=== PATIENT | male | born 1970 | race Asian ===

== ENCOUNTER 2019-04-18 06:49 | Emergency (ER) | payer OTHER ==
[~2019-04-18] VITALS: Ht 172.7 cm; Wt 79.4 kg
[2019-04-18 07:11] VITALS: BP_SYST 128
[2019-04-18 07:36] VITALS: BP_SYST 125
[2019-04-18] MEDS ORDERED: DEXAMETHASONE SOD PHOSPHATE 10 MG/ML VIAL IM ONE (07:45)
== END 2019-04-18 08:10 | disposition home or self-care (01) ==
LOC: SED 06:49
DX: T78.40XA Allergy, unspecified, initial encounter (principal); H57.89 Other specified disorders of eye and adnexa; X58.XXXA Exposure to other specified factors, initial encounter
CPT/HCPCS: 96372; 99283; J1100

== ENCOUNTER 2019-05-02 12:33 | Emergency (ER) | payer OTHER ==
[~2019-05-02] VITALS: Ht 172.7 cm; Wt 79.4 kg
[2019-05-02 13:08] VITALS: BP_SYST 110
[2019-05-02 16:35] VITALS: BP_SYST 110
== END 2019-05-02 16:35 | disposition home or self-care (01) ==
LOC: SED 12:33
DX: L50.9 Urticaria, unspecified (principal)
CPT/HCPCS: 99283

== ENCOUNTER 2019-06-08 13:40 | Emergency (ER) | payer MEDICAID, OTHER ==
[~2019-06-08] VITALS: Ht 172.7 cm; Wt 81.6 kg
[2019-06-08 14:00] VITALS: BP_SYST 127
--- NOTE | 2019-06-08 14:00 | NUR ---
Patient to ER bed 6 to gown for evaluation. Side rails up. Report given to Mikie CHRISTIANSEN.
--- NOTE | 2019-06-08 14:06 | NUR ---
Patient is awake, alert, and oriented x4. He is complaining of bloody stool with anal pain for 2 weeks. 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 He reports having a hard bowel movement today with bright red blood. Patient also states that he visited his PCP and has a colonoscopy scheduled in 2 weeks, but wants relief from his hemmorhoid pain.
--- NOTE | 2019-06-08 14:25 | NUR ---
ER Dr. Ball at bedside examining patient.
--- NOTE | 2019-06-08 14:30 | NUR ---
Rectal exam performed by Dr.Morrison brandon Merchant at bedside during procedure. Patient tolerated well.
--- NOTE | 2019-06-08 14:35 | NUR ---
Patient given written and verbal discharge instructions and verbalizes understanding. ER MD discussed with patient the results and treatment provided. Patient in stable condition. ID arm band removed. Rx of anusol, norco given. Patient educated on pain management and to follow up with PMD. Pain Scale 0/10. Opportunity for questions provided and answered. Medication side effect fact sheet provided.
== END 2019-06-08 14:35 | disposition home or self-care (01) ==
LOC: SED 13:40
DX: K64.9 Unspecified hemorrhoids (principal); K62.5 Hemorrhage of anus and rectum
CPT/HCPCS: 99283

== ENCOUNTER 2019-10-14 09:04 | Emergency (ER) | payer MEDICAID ==
[~2019-10-14] VITALS: Ht 172.7 cm; Wt 79.4 kg
[2019-10-14 09:10] VITALS: BP_SYST 140
--- NOTE | 2019-10-14 09:15 | NUR ---
Patient to ER bed 8 to gown for evaluation. Side rails up. Report given to Armando CHRISTIANSEN.
--- NOTE | 2019-10-14 09:23 | NUR ---
PATIENT PRESENTS TO THE ER WITH HX OF RED RAISED RASH TO ANTERIOR LOWER NECK REGION FOR FOUR DAYS AFTER USING THE GYM AND PROFUSE SWEATING DURING WORKOUT; NO TRAUMA, NO OTHER REMARKABLE S/S; PATENT TO ER #[id number]; ERMD EVALUATION PENDING
--- NOTE | 2019-10-14 09:34 | NUR ---
ERMD EVALUATION [id number]
--- NOTE | 2019-10-14 09:41 | NUR ---
PATIENT STATES HE IS DRIVING, BENADRYL HELD PER ERMD AND SENT HOME WITH PATIENT FOR ADMINISTRATION
[2019-10-14] MEDS ORDERED: PREDNISONE 20 MG TABLET PO ONE (09:45)
[2019-10-14] MEDS ORDERED: DIPHENHYDRAMINE HCL 25 MG CAPSULE PO ONE (09:45)
[2019-10-14 10:11] VITALS: BP_SYST 120
--- NOTE | 2019-10-14 10:13 | NUR ---
REASSESSMENT BY ERMD; PATIENT PREPARED FOR DISCHARGE; ACI GIVEN AND PATIENT INDICATED FULL UNDERSTANDING; DISCHARGED AMBULATORY; UNCHANGED
== END 2019-10-14 10:11 | disposition home or self-care (01) ==
LOC: SED 09:04
DX: L25.9 Unspecified contact dermatitis, unspecified cause (principal)
CPT/HCPCS: 99283; J7512; Q0163

== ENCOUNTER 2020-02-22 07:51 | Emergency (ER) | payer MEDICAID ==
[~2020-02-22] VITALS: Ht 172.7 cm; Wt 79.4 kg
[2020-02-22 07:59] VITALS: BP_SYST 152
--- NOTE | 2020-02-22 07:59 | NUR ---
Patient to ER bed 02 to gown for evaluation. Side rails up.
--- NOTE | 2020-02-22 08:01 | NUR ---
Patient arrived in the ED c/o bilateral pain and swelling on both eyes, had seafood 2 days ago. Denied any chest pain or shortness of breath. Denied any fevers, chills, nausea or vomiting. Patient is alert and oriented x4, respirations even and unlabored, speaking in full sentences, and ambulating with a steady gait. VSS, pain level 6/10. Informed of the approximate wait time. Instructed to notify ED staff for any changes in condition or worsening of symptoms. Patient verbalized understanding.
--- NOTE | 2020-02-22 08:04 | NUR ---
ER Dr. Cruz at bedside examining patient.
--- NOTE | 2020-02-22 08:40 | NUR ---
Patient given written and verbal discharge instructions and verbalizes understanding. ER MD discussed with patient the results and treatment provided. Patient in stable condition. ID arm band removed. Rx of Prednisone and Benadryl given. Patient educated on pain management and to follow up with PMD. Pain Scale 0/10. Opportunity for questions provided and answered. Medication side effect fact sheet provided.
[2020-02-22 10:16] VITALS: BP_SYST 126
== END 2020-02-22 10:16 | disposition home or self-care (01) ==
LOC: SED 07:51
DX: T78.1XXA Other adverse food reactions, not elsewhere classified, initial encounter (principal); X58.XXXA Exposure to other specified factors, initial encounter
CPT/HCPCS: 99283

== ENCOUNTER 2020-03-06 10:28 | Emergency (ER) | payer MEDICAID ==
[~2020-03-06] VITALS: Ht 170.2 cm; Wt 81.6 kg
[2020-03-06 10:47] VITALS: BP_SYST 123
--- NOTE | 2020-03-06 10:47 | NUR ---
Patient to ER bed 6 to gown for evaluation. Side rails up. Report given to ЕЛЕНА Eldridge.
--- NOTE | 2020-03-06 10:55 | NUR ---
pt arrives from home w/ a bump to the left upper back. Pt denies any pain. Pt reports having an allergic rx to shelf fish last week and had more prominent swelling to the left side of the body. No other c/o at the moment
--- NOTE | 2020-03-06 12:06 | NUR ---
Patient transported to radiology via WC, accompanied by US tech.
[2020-03-06 12:57] VITALS: BP_SYST 123
--- NOTE | 2020-03-06 13:01 | NUR ---
Patient given written and verbal discharge instructions and verbalizes understanding. ER MD discussed with patient the results and treatment provided. Patient in stable condition. ID arm band removed. Patient educated on pain management and to follow up with PMD. Pain Scale 0/10. Opportunity for questions provided and answered. Medication side effect fact sheet provided.
== END 2020-03-06 12:57 | disposition home or self-care (01) ==
LOC: SED 10:28
DX: R22.2 Localized swelling, mass and lump, trunk (principal)
CPT/HCPCS: 76536-TC; 99284

== ENCOUNTER 2020-05-26 09:16 | Emergency (ER) | payer MEDICAID ==
[~2020-05-26] VITALS: Ht 172.7 cm; Wt 83.9 kg
[2020-05-26 09:22] VITALS: BP_SYST 157
--- NOTE | 2020-05-26 09:26 | NUR ---
Patient to ER bed 02 to gown for evaluation. Side rails up.
--- NOTE | 2020-05-26 09:30 | NUR ---
Pt walked in to ER with c/o swelling to left side of face and rash to neck area. V/S stable, pt is afebrile. Currently resting in bed, will continue to monitor.
--- NOTE | 2020-05-26 09:40 | NUR ---
ER Dr. Montanez at bedside examining patient.
[2020-05-26 10:00] VITALS: BP_SYST 157
--- NOTE | 2020-05-26 10:00 | NUR ---
Patient given written and verbal discharge instructions and verbalizes understanding. ER MD discussed with patient the results and treatment provided. Patient in stable condition. ID arm band removed. Rx of Hydrocortisone cream and Prednisone given. Patient educated on pain management and to follow up with PMD. Pain Scale 0. Opportunity for questions provided and answered. Medication side effect fact sheet provided.
== END 2020-05-26 10:00 | disposition home or self-care (01) ==
LOC: SED 09:16
DX: T78.1XXA Other adverse food reactions, not elsewhere classified, initial encounter (principal); R21 Rash and other nonspecific skin eruption; Z91.013 Allergy to seafood; X58.XXXA Exposure to other specified factors, initial encounter
CPT/HCPCS: 99283

== ENCOUNTER 2020-11-15 11:21 | Emergency (ER) | payer MEDICAID ==
[~2020-11-15] VITALS: Ht 172.7 cm; Wt 88.5 kg
[2020-11-15 11:28] VITALS: BP_SYST 133
[2020-11-15] MEDS ORDERED: NAPR-1172 PO (11:37)
[2020-11-15 11:40] VITALS: BP_SYST 130
== END 2020-11-15 11:40 | disposition home or self-care (01) ==
LOC: SED 11:21
DX: M65.312 Trigger thumb, left thumb (principal); Z91.013 Allergy to seafood; W18.39XA Other fall on same level, initial encounter; Y93.B2 Activity, push-ups, pull-ups, sit-ups; Y92.89 Other specified places as the place of occurrence of the external cause; Y99.8 Other external cause status
CPT/HCPCS: 99281